=== PATIENT | female | born 1990 | race Caucasian/White ===

== ENCOUNTER 2016-10-03 20:43 | Emergency (ER) | payer MEDICAID ==
--- NOTE | 2016-10-04 19:09 | ER ---
ADMIT: 10/03/2016 RM/LOC: ER [facility] MR#: [id number] [address] [id number] [address] [place] [address] Emergency Room Report SEX: F AGE: 26 : 1990 DATE: 10/03/2016 BRIEF ADDENDUM: Please see my T-sheet for complete review of systems, past medical history, and physical exam. CHIEF COMPLAINT: Vaginal bleeding. HISTORY OF PRESENT ILLNESS: This is a pleasant 26-year-old white female, who presents with an episode of vaginal bleeding 4 hours prior to being seen in the ER. The patient states she was at home when she began having some spotting to the point that she soaked her underwear with blood. Denies any abdominal pain, pelvic pain, vaginal pain or low back pain. She is unsure when her last menstrual period was. She discontinued control in April, had heavy periods throughout May. She was in to see Dr. Mendoza last week, which dated her intrauterine at 10 weeks by ultrasound. She is G1, P0. Does state she has some frequency with urination; however, no dysuria. No vaginal discharge or leakage of fluids. She otherwise feels well. She does have an allergy to amoxicillin. COURSE IN THE EMERGENCY ROOM: GENERAL: The patient was seen and examined. She is nontoxic and afebrile. She is in no acute distress. ABDOMEN: She does have some tenderness to palpation over the suprapubic region of her abdomen. PELVIC: Shows normal external exam. Speculum exam shows a closed cervix. No active bleeding is identified. No clot. She has no tenderness on exam. No CVA tenderness. RESPIRATORY: No respiratory distress. No wheezes, rales, or rhonchi. EXTREMITIES: Nontender. SKIN: Warm and dry. NEUROLOGIC: She is oriented. Did get transvaginal ultrasound on her today, it shows a viable intrauterine , approximately 10 weeks 1 day. Some fluid in the cervical canal. Small amount of free-fluid in the cul-de-sac. White count 10, hemoglobin 12.9, hematocrit 37.8, platelets 243. Sodium 139, potassium 3.7, CO2 of 28, BUN 17, creatinine 0.7. Beta hCG quantitative was 132,993. Urine does show 2+ blood, 2+ urobilinogen, 10 WBC, 2+ leukocyte esterase, 10 RBCs per high- power field consistent with acute cystitis. She was given Macrobid 100 mg p.o. prior to discharge. ADMIT: 10/03/2016 RM/LOC: [facility] MR#: [id number] [address] [place] [id number] [place] [address] Emergency Room Report SEX: F AGE: 26 : 1990 IMPRESSION: 1. Vaginal bleeding. 2. First trimester . 3. Acute cystitis. DISPOSITION: Patient was started on Macrobid 100 mg p.o. b.i.d. for 5 days. She is to follow up with Dr. Mendoza later this week. Increase fluids as tolerated. Continue her multivitamins. Return with any worsening signs or symptoms or follow up with Dr. Mendoza. Tylenol as needed for pain. Return home and rest. Finish the course of antibiotics. Questions sought and answered to the best of my ability and to the patient's satisfaction. Discharged in stable condition. AYLA Blackwell / Marvin Eller MD / lyle JOB #: [id number] CC: Marvin Eller MD, Attending Physician Lisandro Mendoza, Family Physician
== END 2016-10-04 00:30 | disposition home or self-care (01) ==
LOC: ER 20:43
DX: O20.9 Hemorrhage in early pregnancy, unspecified (principal); O23.11 Infections of bladder in pregnancy, first trimester; N30.00 Acute cystitis without hematuria; Z3A.10 10 weeks gestation of pregnancy; Z79.899 Other long term (current) drug therapy; Z88.1 Allergy status to other antibiotic agents